=== PATIENT | female | born 1995 | race Caucasian/White ===

== ENCOUNTER 2024-01-29 11:04 | Inpatient (IN) | payer OTHER, SELFPAY ==
[~2024-01-29] VITALS: Ht 160 cm; Wt 63.6 kg
[2024-01-29] MEDS ORDERED: HOME MED LIST COMPLETE! XX SCH (11:55)
[2024-01-29 12:20] LABS: HEMATOCRIT 38.3 % (36.0-47.0); HEMOGLOBIN 12.7 g/dl (12.0-15.5); MEAN CORPUSCULAR HEMOGLOBIN 28.7 pg (27.0-33.0); MEAN CORPUSCULAR HGB CONC 33.2 g/dl (32.0-36.5); MEAN CORPUSCULAR VOLUME 86.7 fl (80.0-96.0); PLATELET COUNT, AUTOMATED 253 10^3/uL (150-450); RED BLOOD COUNT 4.42 10^6/uL (4.00-5.40); WHITE BLOOD COUNT 5.5 10^3/uL (4.0-10.0)
[2024-01-29 12:37] LABS: AMPHETAMINES LEVEL URINE NEGATIVE (NEGATIVE); BARBITURATES URINE NEGATIVE (NEGATIVE); BENZODIAZEPINES URINE NEGATIVE (NEGATIVE); CANNABINOIDS URINE NEGATIVE (NEGATIVE); COCAINE METABOLITE URINE NEGATIVE (NEGATIVE); METHADONE URINE NEGATIVE (NEGATIVE); OPIATES URINE NEGATIVE (NEGATIVE); PHENCYCLIDINE URINE NEGATIVE (NEGATIVE)
[2024-01-29 12:40] LABS: ETHYL ALCOHOL (ETHANOL) 0.005 % (0.000-0.010)
[2024-01-29 12:41] LABS: ALBUMIN 3.8 G/DL (3.2-5.2); ALKALINE PHOSPHATASE 55 U/L (46-116); ALT/SGPT 22 U/L (7.0-40); AST/SGOT 15 U/L (<34); BILIRUBIN,DIRECT 0.1 MG/DL (<0.4); BILIRUBIN,TOTAL 0.3 MG/DL (0.3-1.2); BLOOD UREA NITROGEN 13 MG/DL (9-23); CALCIUM LEVEL 9.1 MG/DL (8.5-10.1); CARBON DIOXIDE LEVEL 28 MMOL/L (20-31); CHLORIDE LEVEL 107 MMOL/L (98-107); GLOMERULAR FILTRATION RATE > 60.0 (>60); GLUCOSE, FASTING 104 MG/DL (60-100); POTASSIUM SERUM 4.1 MMOL/L (3.5-5.1); SALICYLATE LEVEL < 3.0 MG/DL (<30); SODIUM LEVEL 140 MMOL/L (136-145); TOTAL PROTEIN 6.4 G/DL (5.7-8.2)
[2024-01-29 12:46] LABS: HCG, SERUM QUALITATIVE NEGATIVE (NEGATIVE)
[2024-01-29] MEDS ORDERED: ACETAMINOPHEN TAB 650MG DOSE (2X325MG) PO PRN (15:45)
[2024-01-29] MEDS ORDERED: IBUPROFEN 400MG TAB PO PRN (15:45)
[2024-01-29] MEDS ORDERED: MOM 30ML SUSPENSION UDC PO PRN (15:45)
[2024-01-29] MEDS ORDERED: traZODone 50 MG TAB PO PRN (15:45)
[2024-01-29] MEDS ORDERED: diphenhydrAMINE 25MG CAP PO PRN (15:45)
[2024-01-29] MEDS ORDERED: MAALOX 30 ML SUSP *UDC PO PRN (15:45)
[2024-01-30 06:23] VITALS: BP 113/63; TEMP 98.2; O2SAT 97
[2024-01-30] MEDS: ESCITALOPRAM OXALATE 5MG TABLET (LEXAPRO) PO SCH (11:54)
[2024-01-30 18:04] VITALS: BP 121/71; TEMP 97.4
[2024-01-31 06:09] VITALS: BP 104/60; TEMP 97.4; O2SAT 100
[2024-01-31] MEDS ORDERED: LEXA5TAB13 PO (10:34)
== END 2024-01-31 12:42 | disposition home or self-care (01) | DRG 882 ==
LOC: EDBD 11:04 → M ED 11:04 → M ED INP 15:45 → M PSY 17:03
PROVIDERS: ADMIT Student in an Organized Health Care Education/Training Program; ATTEND Student in an Organized Health Care Education/Training Program
DX: F43.10 Post-traumatic stress disorder, unspecified (principal); R45.851 Suicidal ideations; F60.9 Personality disorder, unspecified; S81.811A Laceration without foreign body, right lower leg, initial encounter; X58.XXXA Exposure to other specified factors, initial encounter; Y92.9 Unspecified place or not applicable; Y93.9 Activity, unspecified; Z11.52 Encounter for screening for COVID-19; Z62.810 Personal history of physical and sexual abuse in childhood; Z91.410 Personal history of adult physical and sexual abuse